=== PATIENT | male | born 1955 | race Caucasian/White ===

== ENCOUNTER 2017-04-14 16:19 | Outpatient (CLI) | END 2017-04-14 16:20 | disposition home or self-care (01) | LOC: LAB 16:19 | PROVIDERS: ATTEND Family Medicine | DX: E78.00 Pure hypercholesterolemia, unspecified (principal); E11.9 Type 2 diabetes mellitus without complications; I10 Essential (primary) hypertension; Z12.5 Encounter for screening for malignant neoplasm of prostate | CPT/HCPCS: 36415; 80053; 80061; 83036; 85025 ==